=== PATIENT | male | born 1980 | race Caucasian/White ===

== ENCOUNTER → 2016-10-19 | Outpatient (CLI) | payer SELFPAY ==
[~2016-10-19] MED LIST: DOXY-231 PO
[2016-10-19 17:44] VITALS: BP 133/79
--- NOTE | 2016-10-19 17:44 | Urgent Care T Sheet Gen (E) ---
Intake General Temperature (Fahrenheit): 98.1 Pulse: 93 Blood Pressure Systolic: 133 Blood Pressure Diastolic: 79 SPO2: 97 Chief Complaint: tick bite Source: Patient History of Present Illness Initial Comments Pt notes that he found a tick on him on 10/15/16 on his right flank area. He notes he pulled the tick out and "thinks he got the whole tick out". He has noticed increasing redness around where he pulled the tick out. No other symptoms. Respiratory Constitutional Symptoms: No syptoms reported EENTM: No symptoms reported Respiratory: No symptoms reported Cardiovascular: No symptoms reported Gastrointestinal/Abdominal: No symptoms reported Skin: See HPI All Other Systems Reviewed Remaining Systems: All other systems reviewed with negative findings Past Odvigap-Edkvwn-Yofaqw Hx Patient's Social History Alcohol Use: Occasionally Uses Smoking Status: Never smoker Recent foreign travel: No Physical Exam Physical Exam General Appearance: WD/WN No apparent distress Skin Exam: Other (On exam of his right flank area he has an erythematous indurated area that is approx 3 cm x 2 cm. No other skin abnormalities noted. ) Departure Urgent Care Impression Chief Complaint: tick bite Impression: Primary Impression: Tick bite of flank Qualified Code: S30.861A - Insect bite (nonvenomous) of abdominal wall, initial encounter Departure Disposition: 01 HOME OR SELF-CARE Condition: Stable Additional Instructions: Take all of Doxycycline as prescribed below. Follow-up with Primary Care provider in 10-14 days. Return to ER or UC if symptoms get worse or further concerns. Discharge instructions verbally given to patient. Patient verbalizes understanding of discharge instructions. Scripts Doxycycline Monohydrate 100 Mg [id number] Mg PO BID Infection #20 TAB Ref 0 1 po bid x 10 days Prov:SEBASTIÁN STUART 10/19/16 End of report . SEBASTIÁN STUART October 19, 2016 17:44
== END ==
LOC: MHUC 17:22
PROVIDERS: ATTEND Physician Assistant
DX: S30.861A Insect bite (nonvenomous) of abdominal wall, initial encounter (principal); W57.XXXA Bitten or stung by nonvenomous insect and other nonvenomous arthropods, initial encounter